=== PATIENT | female | born 1970 | race Caucasian/White ===

== ENCOUNTER 2022-04-06 11:57 | Emergency (ER) | payer OTHER ==
[~2022-04-06] VITALS: Ht 167.6 cm; Wt 71.2 kg
--- NOTE | 2022-04-06 12:39 | NUR ---
EMILY, pt called 911, stated she is staying at a longterm, feels unsafe, shows s/s of fear, hunger, anxiety
--- NOTE | 2022-04-06 12:40 | NUR ---
Pt given warm blanket made comfortable, given H20, OJ, and food, monitored VS breathing normal 100 % room air, is encouraged to better care for self and stop smoking
--- NOTE | 2022-04-06 12:41 | NUR ---
PT D/C, given instructions, received all signatures
[2022-04-06 12:42] VITALS: BP 144/72
== END 2022-04-06 12:43 | disposition home or self-care (01) ==
LOC: ER 12:01
DX: F45.8 Other somatoform disorders (principal); I10 Essential (primary) hypertension; J45.909 Unspecified asthma, uncomplicated